=== PATIENT | female | born 2000 ===

== ENCOUNTER → 2021-10-23 | Outpatient (REF) | LOC: M LABSMTC 09:45 | PROVIDERS: ATTEND Family Medicine | DX: Z11.52 Encounter for screening for COVID-19 (principal) ==

== ENCOUNTER → 2021-10-27 | Outpatient (REF) | LOC: M LABSMTC 09:57 | PROVIDERS: ATTEND Family Medicine | DX: Z11.52 Encounter for screening for COVID-19 (principal) ==